=== PATIENT | female | born 1965 | race Caucasian/White ===

== ENCOUNTER 2017-03-03 11:36 | Outpatient (CLI) | payer OTHER | END 2017-03-03 11:37 | disposition home or self-care (01) | LOC: BICRAD 11:36 | DX: M53.3 Sacrococcygeal disorders, not elsewhere classified (principal); W19.XXXA Unspecified fall, initial encounter | CPT/HCPCS: 72220 ==

== ENCOUNTER 2017-05-05 11:49 | Day surgery (SDC) | payer OTHER ==
[2017-05-04 10:59] VITALS: BMI 38.2
[2017-05-05] MEDS ORDERED: Midazolam HCl 2 mg/2 ml Vial ONE ×2 (13:36)
--- NOTE | 2017-05-05 15:35 | RAD ---
CERVICAL SPINE AND LUMBAR SPINE MYELOGRAM: HISTORY: Cervical radiculopathy. Low back pain. Previous lumbar and cervical fusion. COMPARISON: None. EXPOSURE: 1.9 minutes. 74348.1 mGy*^m2. FINDINGS: TWO VIEW ARC WELDER APPRENTICE CERVICAL SPINE RADIOGRAPH: There is cervical fusion at C3 and C4. There is anterior and posterior fusion hardware. Disk prosth esis was identified. Moderate change at C4-C5 and severe degenerative change at C5-C6. TWO VIEW ARC WELDER APPRENTICE LUMBAR SPINE RADIOGRAPH: There is evidence of a dorsal column stimulator at the L2 level. There are bilateral transpedicular screws at L4 and S1. No perihardware lucency. Bone graft material is identified. Disk prosthesis a t L4-L5. Successful lumbar puncture for intrathecal contrast administration. A total of 10 cc of Isovue 300M contrast was administered intrathecally. The patient tolerated the procedure well. No immediate or post procedure complication. TECHNIQUE: Consent was obtained to perform a lumbar puncture for cervical and lumbar myelogram. The patient's b ack was evaluated. The L2-L3 level is deemed appropriate. The skin was prepped and draped in steril e fashion. 1T Lidocaine, buffered with sodium bicarbonate, was used for local anesthesia. Under flu oroscopic guidance, a 22-gauge spinal needle was advanced into the CSF space. A total of 10 cc of Is ovue 300M contrast was administered intrathecally. The patient tolerated the procedure well. No imm ediate or post procedure complications. IMPRESSION: Technically successful lumbar puncture. Please refer to post-myelogram CT for further detail. POS: [facility]
--- NOTE | 2017-05-05 15:46 | CT ---
CT MYELOGRAM CERVICAL SPINE: HISTORY: Cervical radiculopathy. COMPARISON: None. TECHNIQUE: A post-myelogram cervical spine CT is performed in the axial plane. Reformatted images are submitted for interpretation. FINDINGS: There are anterior and posterior fusion changes at C3-C4 with a disk prosthesis at C3-C4 level. No p erihardware lucency. Straightening of normal cervical lordosis is identified. Visualized soft tissue neck structures, upper mediastinum, and lung apices are unremarkable. There i s no prevertebral soft tissue swelling. C2-C3: No significant disk-osteophyte complex. No significant central canal stenosis or foraminal n arrowing. C3-C4: Broad-based osteophyte ridge. No significant central canal stenosis. Minimal right foramina l narrowing due to degenerative change or the uncovertebral joint and facet hypertrophy. The left ne ural foramen is patent. C4-C5: Central disk-osteophyte complex abuts the thecal sac. No high-grade central canal stenosis. Neural foramen are patent bilaterally. C5-C6: Broad-based disk-osteophyte complex abuts the thecal sac. Mild central canal stenosis. Dege nerative of bilateral uncovertebral joints results in mild to moderate right and mild left foraminal narrowing. C6-C7: Central disk-osteophyte complex abuts the thecal sac. Mild central canal stenosis. Neural f oramina are patent bilaterally. C7-T1: No significant disk-osteophyte complex. No significant central canal stenosis. Neural torres en are patent. IMPRESSION: 1. Degenerative changes of the cervical spine as above. 2. Postsurgical change of the cervical spine as above. POS: [facility]
--- NOTE | 2017-05-05 15:48 | CT ---
EXAM: POST MYELOGRAM LUMBAR SPINE CT 05/05/17 HISTORY: Lumbar radiculopathy. Lumbar fusion. COMPARISON: None. TECHNIQUE: Post myelogram lumbar spine CT is performed in the axial plane. Reformatted images are submitted for interpretation. FINDINGS: There is diffuse bone demineralization. There is a dorsal column stimulator that enters the thecal sa c at approximately the T12 level. There are bilateral transpedicular screws a t L4 and L5 without per ihardware lucency. Disc prosthesis at L4-L5. Extensive bone graft material in the posterior elements. Symmetric attenuation of psoas muscles. Visualized solid organs are grossly unremarkable. No retroperitoneal mass, lymphadenopathy, free air of free fluid. The conus medullaris terminates at the inferior aspect of L1. T11-T12 and T12-L1: No high grade central canal stenosis or high grade foraminal narrowing. L1-L2: Small left paracentral disc protrusion. Mild central canal stenosis. Neural foramina are paten t bilaterally. L2-L3: Generalized disc bulge, ligamentum flavum thickening and facet hypertrophy result in mild cent ral canal stenosis. Mild bilateral foraminal narrowing. L3-L4: There are posterior decompressive laminectomy defects. Extensive soft tissue material and bone graft material is identified. There is no significant posterior disc abnormality. However, the afore mentioned changes in the posterior elements result in moderate central canal stenosis. Mild to modera te bilateral foraminal narrowing. L4-L5: Posterior decompressive laminectomy defect. No significant osteophyte ridge. No high grade tomás tral canal stenosis. Neural foramina are patent. L5-S1: No significant central canal stenosis. Neural foramina are mildly narrowed bilaterally. IMPRESSION: 1. Postsurgical changes of lumbar spine as above. 2. Moderate central canal stenosis at L3-L4. POS: [facility]
[2017-05-05] MEDS ORDERED: Iopamidol-M 300 61% 15 ML VIAL ONE (17:25)
== END 2017-05-05 16:35 | disposition home or self-care (01) ==
LOC: SDC/OP 11:49 → EDSTATUS 13:00 → SDC/OP 16:35
PROVIDERS: ATTEND Neurological Surgery
PROC: B02B1ZZ Computerized Tomography (CT Scan) of Spinal Cord using Low Osmolar Contrast (ICD-10-PCS; principal; 2017-05-05)
DX: M50.121 Cervical disc disorder at C4-C5 level with radiculopathy (principal); M48.061 Spinal stenosis, lumbar region without neurogenic claudication; M54.5 Low back pain; Z98.1 Arthrodesis status; Z88.2 Allergy status to sulfonamides; Z88.5 Allergy status to narcotic agent; Z88.8 Allergy status to other drugs, medicaments and biological substances; Z91.041 Radiographic dye allergy status; Z79.899 Other long term (current) drug therapy; Z90.710 Acquired absence of both cervix and uterus; Z98.51 Tubal ligation status; Z98.890 Other specified postprocedural states
CPT/HCPCS: 62305; 72126; 72132; J2250

== ENCOUNTER 2017-07-03 05:42 | Day surgery (SDC) | payer OTHER ==
[2017-06-28 11:26] VITALS: BMI 40.6
--- NOTE | 2017-07-02 23:10 | HP ---
HISTORY OF PRESENT ILLNESS: Ms. Bajwa is a 51-year-old woman who is a former patient of Dr. Negro Joe for many years ago, who has had a few lumbar and cervical fusions as well as a dorsal column stimulator placement. She continues to struggle with severe chronic and debilitating neck an d low back pain as well as headaches, which are managed by Dr. Gomez. She most recently had an upd ated CT myelogram, which reveals foraminal narrowing at C5-C6 bilaterally. She does report increasin g basis of C6 bilateral radiculopathy that likely is matched well by these symptoms. PAST MEDICAL HISTORY: Significant for hypertension, chronic neck and low back pain, and COPD. CURRENT MEDICATIONS: Lisinopril, Zanaflex, trazodone, and Xopenex. ALLERGIES: TRAMADOL, STADOL, MORPHINE, BUTRANS AND FENTANYL PATCHES TRANSDERMAL ONLY, TYLENOL NO: 3, TYLENOL NO: 4, AND SULFA DRUGS. PHYSICAL EXAMINATION: PSYCHIATRIC: The patient is alert and oriented x3. NEUROLOGIC: Gait is severely antalgic, mostly orthopedic in nature secondary to her knee. EXTREMITIES: Lower extremity motor exam is normal. ASSESSMENT: Cervical radiculopathy and low back pain. PLAN: Dr. Reece met with the patient, reviewed imaging, and advocated for C5-C6 ACDF. He explained to the patient the risks, benefits, and alternatives of the procedure. The patient expressed underst anding and would like to move forward with surgery as discussed. I do believe the patient is mentall y competent and capable of making medical decisions for herself and we will move forward with surgery as planned.
[2017-07-03] MEDS ORDERED: CEFAZOLIN/Water 2 GM/20 ML SYRINGE ONE ×2 (06:01→11:05)
[2017-07-03] MEDS ORDERED: Thrombin 5000 UNITS/5 ML VIAL ONE (06:16)
[2017-07-03] MEDS ORDERED: HYDROmorphone 0.5 MG/0.5 ML SYRINGE ONE ×5 (06:37→09:20)
[2017-07-03] MEDS ORDERED: Midazolam HCl 2 mg/2 ml Vial ONE ×2 (06:44→08:44)
--- NOTE | 2017-07-03 08:50 | OP ---
DATE OF PROCEDURE: 07/03/2017 SURGEON: Kem Reece M.D. CIVIL ENGINEERING TEACHER: Chivo Cervantes PA-C. INDICATION: Pain. DIAGNOSIS: Cervical radiculopathy. PROCEDURE: Anterior cervical discectomy and fusion, C5-6. ANESTHESIA: General. TECHNIQUE: The patient was brought into the operating room and placed under general anesthesia. She was placed on the table in a supine position. A transverse incision was planned over the lateral as pect of the neck on the right. After prepping and draping and after an appropriate operative pause, the incision was created. The underlying platysma muscles identified and incised. A blunt tissue pl ane anterior to the sternocleidomastoid muscle was used to gain access to the prevertebral space. Se lf-retaining retractors were placed in the wound for optimal exposure. After confirming the appropri ate level with C-arm fluoroscopy, an annulotomy was performed in the C5-6 disk space. With the use o f distraction pins, the space was distracted, and anterior and posterior osteophytes as well as all d isk material were removed. A 7 mm lordotic PEEK cage packed with allograft and autograft material wa s then placed within the interbody space. An anterior cervical plate was then fashioned in the front of the spine and secured with a total of 4 fixed screws. Midline and lateral structures were inspec jazzy and found to be free from significant trauma. The wound was irrigated. Hemostasis was maintaine d throughout. The wound was then closed in anatomic layers and a pressure dressing was applied. The re were no known procedural complications.
[2017-07-03] MEDS ORDERED: HYDROcodone/Acetaminophen 7.5/325 mg Tablet ONE (10:39)
[2017-07-03] MEDS ORDERED: Dexamethasone 20 MG/5 ML VIAL ONE (16:13)
[2017-07-03] MEDS ORDERED: PROPOFOL 200 MG/20 ML VIAL ONE (16:13)
[2017-07-03] MEDS ORDERED: PHENYLEPHRINE-NS 100 MCG/ML 10 ML SYRINGE ONE (16:13)
[2017-07-03] MEDS ORDERED: Ketorolac Tromethamine 30 MG/ML VIAL ONE (16:13)
[2017-07-03] MEDS ORDERED: Lidocaine 1% PF 5 ML VIAL ONE (16:13)
[2017-07-03] MEDS ORDERED: Glycopyrrolate 0.2 MG/ML 5 ML SYRINGE ONE (16:13)
[2017-07-03] MEDS ORDERED: Ondansetron HCl/PF 4 MG/2 ML Vial ONE (16:13)
--- NOTE | 2017-07-09 08:36 | EKG ---
Test Reason : PREOP Blood Pressure : / mmHG Vent. Rate : 071 BPM Atrial Rate : 071 BPM P-R Int : 156 ms QRS Dur : 084 ms QT Int : 408 ms P-R-T Axes : 065 072 069 degrees QTc Int : 443 ms Normal sinus rhythm Normal ECG When compared with ECG of 21-OCT-2010 07:50, No significant change was found Confirmed by TERRI ESPINO MD ([id number]) on 07/09/2017 8:36:31 AM Referred By: DARELL Confirmed By:TRERI ESPINO MD
== END 2017-07-03 11:45 | disposition home or self-care (01) ==
LOC: SDC 05:42
PROVIDERS: ATTEND Neurological Surgery
PROC: 0RT30ZZ Resection of Cervical Vertebral Disc, Open Approach (ICD-10-PCS; principal; 2017-07-03)
PROC: 0RG10A0 Fusion of Cervical Vertebral Joint with Interbody Fusion Device, Anterior Approach, Anterior Column, Open Approach (ICD-10-PCS; principal; 2017-07-03)
DX: M54.12 Radiculopathy, cervical region (principal); M25.78 Osteophyte, vertebrae; I10 Essential (primary) hypertension; M54.5 Low back pain; G89.29 Other chronic pain; J44.9 Chronic obstructive pulmonary disease, unspecified; Z79.1 Long term (current) use of non-steroidal anti-inflammatories (NSAID); Z79.899 Other long term (current) drug therapy; Z88.6 Allergy status to analgesic agent; Z88.5 Allergy status to narcotic agent; Z88.2 Allergy status to sulfonamides; Z91.041 Radiographic dye allergy status
CPT/HCPCS: 93005; 93010; 96374; C1713; C1776; J1100; J1170; J1885; J2001; J2250; J2405; J2704

== ENCOUNTER 2017-08-15 11:29 | Outpatient (CLI) | payer OTHER ==
--- NOTE | 2017-08-15 13:39 | RAD ---
CERVICAL SPINE 3 VIEWS: Date: 08/15/17 HISTORY: Cervical spine surgery 1 month ago. COMPARISON: 12/13/11. FINDINGS: Two separate areas of anterior diskectomy and fusion are noted, one at C3-4 and one at C5-6. The C5-6 hardware is new. There is also posterior fusion hardware at C3-4, stable. There is no anterolisthesi s or retrolisthesis. No evidence for hardware failure. Incompletely imaged spinal stimulating leads o verlie the mid thoracic spine. At C4-5, there is disc space narrowing and degenerative end plate change. IMPRESSION: Postoperative and degenerative change as above. POS: [facility]
== END 2017-08-15 11:30 | disposition home or self-care (01) ==
LOC: SCSRAD 11:29
PROVIDERS: ATTEND Neurological Surgery
DX: M47.22 Other spondylosis with radiculopathy, cervical region (principal); Z98.890 Other specified postprocedural states
CPT/HCPCS: 72040

== ENCOUNTER 2018-02-13 12:21 | Outpatient (CLI) | payer OTHER ==
--- NOTE | 2018-02-13 14:33 | RAD ---
CHEST TWO VIEWS: Indication: Upper back pain, epigastric pain, dyspnea. Comparison: 05-14-15 FINDINGS: Lungs are clear. Dorsal column stimulator overlies the mid thoracic spine. There is partial visualiza tion of ACDF plates involving the cervical spine. No definite pleural effusion or pneumothorax is jaylen dent. There is mild spondylosis of the thoracic spine. IMPRESSION: No acute cardiopulmonary abnormality. POS: [facility]
== END 2018-02-13 12:22 | disposition home or self-care (01) ==
LOC: SCSRAD 12:21
PROVIDERS: ATTEND Physician Assistant Medical
DX: R10.13 Epigastric pain (principal); R05 Cough; R06.2 Wheezing
CPT/HCPCS: 71046

== ENCOUNTER 2018-08-23 01:36 | Outpatient (CLI) | payer OTHER | END 2018-08-23 01:37 | disposition home or self-care (01) | LOC: LABBT 01:36 | PROVIDERS: ATTEND Orthopaedic Surgery | DX: Z01.818 Encounter for other preprocedural examination (principal); M17.0 Bilateral primary osteoarthritis of knee | CPT/HCPCS: 87081; 93005; 93010 ==

== ENCOUNTER 2018-08-23 15:15 | Inpatient (IN) | payer OTHER ==
[2018-08-23 12:22] VITALS: BMI 41.5
[2018-08-23 15:27] LABS: Hemoglobin 13.5 g/dL (12.0-16.0); Mean Corpuscular HGB CONC 34.3 g/dL (32.0-36.0); Mean Corpuscular Hemoglobin 33.5 pg (27.0-31.0); Mean Corpuscular Volume 97.8 fL (78.0-98.0); Mean Platelet Volume 7.7 fL (7.4-10.4); Platelet Count 287 thou/uL (130-400); Red Blood Cell (RBC) Count 4.03 mill/uL (4.20-5.40); White Blood Cell (WBC) Count 6.7 thou/uL (4.8-10.8)
[2018-08-23 15:31] LABS: Bilirubin Negative (Negative); Blood, Urine Negative (Negative); Clarity CLEAR (Clear); Glucose, Urine (Dipstick) Negative (Negative); Leukocyte Negative (Negative); Nitrite Negative (Negative); Protein, Urine (Dipstick) Negative (Neg-Trace); Specific Gravity, Urine 1.022 (1.002-1.036); Urobilinogen 0.2 mg/dL (0.2-1.0); pH, Urine 5.5 (5.0-9.0)
[2018-08-23 15:35] LABS: Bacteria/HPF None Seen HPF (None Seen); Hyaline Casts/LPF 0-3 HYALINE CAST LPF (0-3 Hyaline); Pathc Cast-AUWi Flag 0.67 (0-2.49); RBC/HPF 0-3 HPF (0-3); Squamous Epithelial 0-3 HPF (0-3); WBC/HPF 0-3 HPF (0-3)
[2018-08-23 15:36] LABS: Prothrombin Time 12.9 SEC (12.0-14.7)
[2018-08-23 15:37] LABS: PTT 28.9 SEC (22.9-36.1)
[2018-08-23 15:52] LABS: Anion Gap 11 mmol/L (10-20); BUN (Urea Nitrogen) 20 mg/dL (9.8-20.1); Calc. Creatinine Clearance 0 mL/min (70-130); Calcium 9.8 mg/dL (7.8-10.44); Carbon Dioxide 28 mmol/L (22-29); Chloride 104 mmol/L (98-107); Estimated GFR-MDRD 69; Glucose 90 mg/dL (70-105); Potassium 4.7 mmol/L (3.5-5.1); Sodium 138 mmol/L (136-145)
[2018-08-27] MEDS ORDERED: Vancomycin HCl 1.5 GM in Sodium Chloride 0.9% 250 ML 300 ML IVPB SCH ×2 (06:15→20:00)
[2018-08-27] MEDS ORDERED: Midazolam HCl 2 mg/2 ml Vial ONE (06:19)
[2018-08-27] MEDS ORDERED: Lidocaine 1% (PF) 30 ML VIAL ONE (06:27)
[2018-08-27] MEDS ORDERED: methylPREDNISolone Acetate 40 mg/ml Vial ONE (06:27)
[2018-08-27] MEDS ORDERED: Sodium Chloride 0.9% 100 ML ONE (06:35)
[2018-08-27] MEDS ORDERED: Tranexamic Acid 1,000 MG/10 ML VIAL ONE ×2 (06:35→09:46)
[2018-08-27] MEDS ORDERED: HYDROcodone/Acetaminophen 10/325 mg Tablet PO PRN ×2 (07:39)
[2018-08-27] MEDS ORDERED: Promethazine HCl 25 MG/ML VIAL IM PRN ×4 (07:39→10:39)
[2018-08-27] MEDS ORDERED: Ropivacaine HCl/PF 250 ML in Premix Bag 1 BAG NERVE BLCK SCH (07:39)
[2018-08-27] MEDS ORDERED: Zolpidem Tartrate 5 MG TAB PO PRN ×3 (07:39→10:39)
[2018-08-27] MEDS ORDERED: Ondansetron PF 4 MG/2 ML Vial IVP PRN ×3 (07:39→10:39)
[2018-08-27] MEDS ORDERED: Bupivacaine PF 0.5% 30 ML VIAL ONE (08:13)
[2018-08-27] MEDS ORDERED: Ondansetron HCl/PF 4 MG/2 ML Vial IVP PRN (09:28)
[2018-08-27] MEDS ORDERED: Promethazine HCl 25 MG/ML VIAL SLOW IVP PRN (09:28)
[2018-08-27] MEDS ORDERED: diphenhydrAMINE 25 MG CAP PO PRN ×2 (09:36→10:39)
[2018-08-27] MEDS ORDERED: Acetaminophen 325 MG TAB PO PRN (09:36)
[2018-08-27] MEDS ORDERED: Non-Formulary Item 1 EACH (Levalbuterol Tartrate [Xopenex Hfa Inhaler] 2 PUFF) PO PRN (09:39)
[2018-08-27] MEDS ORDERED: Ketorolac Tromethamine 30 MG/ML VIAL ONE (09:40)
[2018-08-27] MEDS ORDERED: Ketorolac Tromethamine 30 MG/ML VIAL IVP SCH (09:45)
[2018-08-27] MEDS ORDERED: Tranexamic Acid 1,000 MG in Sodium Chloride 0.9% 100 ML IVPB SCH (09:45)
[2018-08-27] MEDS ORDERED: Acetaminophen 1,000 MG in Premix Bag 1 BAG IVPB SCH (09:45)
[2018-08-27] MEDS ORDERED: HYDROmorphone 2 MG/ML VIAL ONE (09:56)
[2018-08-27] MEDS ORDERED: XOPENEX INH PRN (10:05)
[2018-08-27] MEDS ORDERED: Naloxone HCl 0.4 mg/ml Vial IV PRN (10:39)
[2018-08-27] MEDS ORDERED: diphenhydrAMINE 50 MG/ML VIAL IM/IV PRN (10:39)
[2018-08-27] MEDS ORDERED: HYDROmorphone 10 mg/100 ml CADD IV PRN (10:39)
--- NOTE | 2018-08-27 10:42 | OP ---
DATE OF PROCEDURE: 08/27/2018 PREOPERATIVE DIAGNOSES: Bilateral knee arthritis, left worse than right. POSTOPERATIVE DIAGNOSES: Bilateral knee arthritis, left worse than right. PROCEDURES PERFORMED: 1. Left total knee replacement using Donna pinless navigation. 2. Right knee corticosteroid injection. CHILD WELFARE DIRECTOR: Abdelrahman Mariee PA-C BLOOD LOSS: Minimal. COMPLICATIONS: None. ANESTHESIA: She did have a general anesthetic. She had a preoperative block. DISPOSITION: She went to recovery in stable condition. IMPLANTS: Our implants to the left knee were a Donna triathlon total knee system. We used a size 4 cruciate retaining femur and size 4 primary tibial baseplate. We used a 4 x 11 mm CS X3 tibial bearing and a 27 x 8 symmetric X3 patella. DISPOSITION: She did go to recovery room in stable condition. INDICATIONS: A 52-year-old female, whom I have known for many years, who has had bad knees for at least a decade. At this time, she really just cannot tolerate doing daily activities with our nonoperative means. DESCRIPTION OF PROCEDURE: After verbal consent forms were explained and signed, she was taken to the operative room and at this time was given general anesthetic. Once the level of anesthesia was appropriate, 80 mg of Depo-Medrol local was injected into the right knee after cleaning it off with alcohol. Once the level of anesthesia was appropriate, a well-padded tourniquet was placed on the left leg, and the leg was then prepped and draped in standard surgical fashion. The limb was exsanguinated and tourniquet taken up to 300 mmHg. Midline incision was made with a 10 blade down through the skin and subcutaneous tissue. Bovie electrocautery was used to coagulate any brisk venous bleeding. A new blade was used to make a medial parapatellar arthrotomy. Small subperiosteal release was performed medially and excess fat pad was removed. The knee was flexed up to gain access to the femur. The femur was navigated and distal femoral resection was made. Epicondylar access was used to align our sizing jig and this was pinned in place. We sized our femur to be a 4. 4:1 cutting block was applied and pinned. Anterior and posterior chamfer cuts were then made. We navigated out our proximal tibia and made our proximal tibial resection. Spreaders were used to remove any posterior osteophytes off the back of the femur as well as remaining meniscal tissue. A long alignment gifty was then used to achieve correct rotation of our tibial baseplate and a size 4 was chosen. This was pinned in place. We trialed the polyethylene and a 4 x 11 mm CS X3 polyethylene gave us full extension and good stability throughout range of motion. Two towel clips and a saw were used to cut our patella. Three lug nuts were drilled and 27 x 8 symmetric X3 patella was trialed which sat nicely in the trochlear groove. We then drilled our femur and punched our tibia. All components were removed. The knee was thoroughly irrigated and dried. Cement was mixed into the cement gun on the back table. Components were then placed. The knee was held out in full extension until the cement had dried. All excess bone cement was removed. Multiple #2 Vicryl stitches as well as a Quill were used to close our extensor mechanism. 0 Quill followed by a running Monoderm was then used to close the skin. Surgicel glue was then used on the skin. Once this had dried, soft tissue dressing was applied to the limb, tourniquet was let down, and the toes pinked up nicely. The patient was then awakened and taken to the recovery room in stable condition. All counts were correct at the end of the case. The patient did receive preoperative IV antibiotics. The patient was injected with Exparel for postoperative pain relief. Job ID: [id number]
[2018-08-27] MEDS: Ketorolac Tromethamine 30 MG/ML VIAL IVP SCH ×6 (11:57→23:32)
[2018-08-27] MEDS: CEFAZOLIN 2 GM in Premix Bag 1 BAG IVPB SCH ×2 (14:01→21:00)
[2018-08-27] MEDS: Sodium Chloride 0.9% 1,000 ML IV SCH ×2 (14:03→20:45)
--- NOTE | 2018-08-27 14:20 | PDOC.EVN ---
Event Note - Event Note Event Note: Date/Time: 08/27/18 2564 Thank youfor the consultation request. I personally evaluated the patient and discussed the management with Dr. Moon. I agree with the History, Examination, Assessment and Plan as discussed. Ms. Bajwa is requesting nicotene patch since she cannot smoke at the hospital. This is ordered along with her routine home meds, except for opioids. Currently on a ACCOUNTS PAYABLE LEAD pump for pain.
[2018-08-27] MEDS: Nicotine 21 MG PATCH TD SCH (16:57)
[2018-08-27] MEDS: Aspirin 81 mg Enteric Coated Tablet PO SCH (20:51)
[2018-08-27] MEDS: Ferrous Gluconate 324 MG TAB PO SCH (20:51)
[2018-08-27] MEDS: Senokot S 8.6-50 MG TAB PO SCH (20:53)
[2018-08-27] MEDS: Lisinopril 20 MG TAB PO SCH (20:54)
[2018-08-27] MEDS: tiZANidine HCl 4 MG TAB PO SCH (20:55)
[2018-08-27] MEDS: traZODone HCl 50 MG TAB PO SCH (20:55)
[2018-08-27] MEDS ORDERED: Non-Formulary Item 1 EACH (Tizanidine Hcl [Tizanidine Hcl] 4 MG) PO SCH (21:00)
[2018-08-27] MEDS ORDERED: Non-Formulary Item 1 EACH (Esomeprazole Magnesium [Nexium] 40 MG) PO SCH (21:00)
[2018-08-28 04:12] LABS: Hemoglobin 11.7 g/dL (12.0-16.0); Mean Corpuscular Hemoglobin 33.5 pg (27.0-31.0); Mean Corpuscular Volume 98.6 fL (78.0-98.0); Mean Platelet Volume 7.6 fL (7.4-10.4); Platelet Count 246 thou/uL (130-400); RBC Distribution Width 11.1 % (11.5-14.5); Red Blood Cell (RBC) Count 3.48 mill/uL (4.20-5.40); White Blood Cell (WBC) Count 14.6 thou/uL (4.8-10.8)
[2018-08-28] MEDS: Sodium Chloride 0.9% 1,000 ML IV SCH ×3 (05:00→21:40)
[2018-08-28] MEDS: Ketorolac Tromethamine 30 MG/ML VIAL IVP SCH ×7 (06:37→23:57)
[2018-08-28] MEDS: Multivitamin W/ Minerals 1 TAB PO SCH (08:15)
[2018-08-28] MEDS: Senokot S 8.6-50 MG TAB PO SCH ×2 (08:15→21:34)
[2018-08-28] MEDS: Ferrous Gluconate 324 MG TAB PO SCH ×2 (08:15→21:34)
[2018-08-28] MEDS: Aspirin 81 mg Enteric Coated Tablet PO SCH ×2 (08:16→21:34)
[2018-08-28] MEDS: Nicotine 21 MG PATCH TD SCH (08:16)
--- NOTE | 2018-08-28 08:30 | PDOC.FM ---
- Subjective Subjective: Seen at bedside this morning resting comfortably. States that she got out of bed and worked with PT yesterday and this went well. She does complain about wheezing starting this morning. She denies SOB or cough. - Objective MAR Reviewed: Yes Vital Signs & Weight: Vital Signs (12 hours) Temp Pulse Resp BP BP Pulse Ox 08/28/18 07:27 98.6 F 73 16 119/83 96 08/28/18 04:21 98.1 F 62 15 111/58 L 96 08/28/18 00:08 98.4 F 70 15 107/67 94 L 08/27/18 20:54 122/73 Weight Weight 109.769 kg I&O: 08/27/18 08/28/18 08/29/18 06:59 06:59 06:59 Intake Total 2102 Output Total 2500 Balance -398 Result Diagrams: 08/28/18 03:50 08/23/18 13:21 Phys Exam - Physical Examination Constitutional: NAD HEENT: moist MMs Diffuse wheezing throughout. No increased work of breathing. No distress Cardiovascular: RRR Gastrointestinal: soft, non-tender, no distention Musculoskeletal: no edema L knee with surgical dressing Neurological: moves all 4 limbs Psychiatric: A&O x 3 Skin: no rash Dx/Plan (1) HTN (hypertension) Code(s): I10 - ESSENTIAL (PRIMARY) HYPERTENSION Status: Acute (2) Asthma Code(s): J45.909 - UNSPECIFIED ASTHMA, UNCOMPLICATED Status: Acute (3) GERD (gastroesophageal reflux disease) Code(s): K21.9 - GASTRO-ESOPHAGEAL REFLUX DISEASE WITHOUT ESOPHAGITIS Status: Acute (4) Status post total knee replacement, left Code(s): Z96.652 - PRESENCE OF LEFT ARTIFICIAL KNEE JOINT Status: Acute - Plan Plan: 1. s/p L TKA POD 1 - patient seems to be doing well with PT. Continue standard post op protocol to be managed by ortho - patient had drop in Hb to 11.7, however is hemodynamically stable - Elevated WBC count this morning, however no fever/chills, wound redness or other signs of infection. Likely reactive, continue to monitor for signs of infection. 2. HTN - continue home meds, well controlled here 3. Asthma - patient takes Xopenex at home, will restart here to help with wheezing. O2 sat is WNL on RA and there is little concern for respiratory compromise at this time. 4. GERD - home PPI Dispo: pt doing well overall, will continue to follow. Addendum - Attending - Attending Attestation Date/Time: 08/28/18 8947 I personally evaluated the patient and discussed the management with Dr. Moon. I agree with the History, Examination, Assessment and Plan documented above with any addition or exceptions noted below.
--- NOTE | 2018-08-28 08:42 | CON ---
DATE OF CONSULTATION: 08/27/2018 RESIDENT: Chivo Moon DO HISTORY OF PRESENT ILLNESS: This is a 52-year-old female, who is status post left TKA postop day 0 with a history of hypertension, hyperlipidemia, asthma, GERD, and multiple neck and back surgeries. She is seen today resting comfortably, in no acute distress. 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 She has no specific complaints. PAST MEDICAL HISTORY: Includes hypertension, hyperlipidemia, asthma, questionable diagnosis of COPD, and GERD. PAST SURGICAL HISTORY: 1. Left TKA on 08/27/2018. 2. Multiple prior neck and back surgeries. FAMILY HISTORY: Noncontributory. ALLERGIES: MORPHINE, ALBUTEROL, BUPRENORPHINE, BUTOPHANOL, CODEINE, FENTANYL, IODINE CONTRAST, SULFA, AND TRAMADOL. SOCIAL HISTORY: The patient has a 35 pack-year history of smoking. She has a previous history of heavy alcohol use; however, has stopped drinking greater than five years ago. She has no history of illicit drug use. REVIEW OF SYSTEMS: GENERAL: Denies fever or chills. HEENT: Denies sore throat or headaches. CARDIOVASCULAR: Denies chest pain, palpitations, peripheral edema, or dizziness. RESPIRATORY: Denies shortness of breath or cough. ABDOMEN: Denies abdominal pain, diarrhea, constipation, nausea, or vomiting. NEURO: Notes that she has numbness in her left leg. Otherwise, no specific complaints. Denies numbness or weakness elsewhere. : The patient has Malhotra in place. Denies any lower abdominal pain. PHYSICAL EXAMINATION: VITAL SIGNS: Blood pressure 107/61, temperature 98.0, pulse 81, respiratory rate 20, and O2 saturation 98% on room air. GENERAL: The patient is alert and oriented x4. No apparent distress. HEENT: Normocephalic and atraumatic. CARDIOVASCULAR: Regular rate and rhythm. No murmurs. RESPIRATORY: Clear to auscultation bilaterally. ABDOMEN: Nontender, soft, and nondistended. Bowel sounds normal x4. EXTREMITIES: Upper extremity range of motion and strength normal. Right lower extremity has normal range of motion and strength. Left lower extremity, has a PAC in place. The patient has difficulty moving this in a knee immobilizer. MUSCULOSKELETAL: As improved noted left lower extremity. Otherwise, full range of motion in all extremities and no specific musculoskeletal abnormalities. LABORATORY DATA: Lab results on 08/23, she had a white count of 6.7, hemoglobin 13.5, hematocrit 39.5, and platelets of 287. She had an INR of 1.0. Sodium 138, potassium 4.7, chloride 104, carbon dioxide 28, creatinine 0.87, and glucose 90 ASSESSMENT AND PLAN: 1. Hypertension. 2. Hyperlipidemia. 3. Asthma. 4. Gastroesophageal reflux disease. PLAN: This is a 52-year-old female, who is status post left TKA postop day zero and we will follow her blood pressure and other comorbidities along with you. At this time, blood pressure seems to be well controlled on home medications which have been restarted with the exception of opiates. DVT prophylaxis per local protocol, SCD and aspirin. We will continue to monitor in the morning. Job ID: [id number] [facility]
[2018-08-28] MEDS ORDERED: Nicotine 21 MG PATCH TD SCH (09:00)
[2018-08-28] MEDS: Polyethylene Glycol 3350 17 GM Packet PO SCH (12:41)
[2018-08-28] MEDS: Albuterol Sulfate 1.25 MG/3 ML NEB NEB SCH ×2 (15:58→22:15)
[2018-08-28] MEDS: traZODone HCl 50 MG TAB PO SCH (21:34)
[2018-08-28] MEDS: tiZANidine HCl 4 MG TAB PO SCH (21:34)
[2018-08-28] MEDS: Lisinopril 20 MG TAB PO SCH (21:36)
[2018-08-29 05:33] LABS: Hemoglobin 10.4 g/dL (12.0-16.0); Mean Corpuscular HGB CONC 33.1 g/dL (32.0-36.0); Mean Corpuscular Volume 99.5 fL (78.0-98.0); Mean Platelet Volume 7.8 fL (7.4-10.4); Platelet Count 227 thou/uL (130-400); RBC Distribution Width 11.4 % (11.5-14.5); Red Blood Cell (RBC) Count 3.16 mill/uL (4.20-5.40)
[2018-08-29] MEDS: Ketorolac Tromethamine 30 MG/ML VIAL IVP SCH (06:39)
[2018-08-29] MEDS: Albuterol Sulfate 1.25 MG/3 ML NEB NEB SCH (07:06)
[2018-08-29] MEDS: Nicotine 21 MG PATCH TD SCH (08:37)
[2018-08-29] MEDS: Multivitamin W/ Minerals 1 TAB PO SCH (08:37)
[2018-08-29] MEDS: Ferrous Gluconate 324 MG TAB PO SCH (08:37)
[2018-08-29] MEDS: Senokot S 8.6-50 MG TAB PO SCH (08:37)
[2018-08-29] MEDS: Aspirin 81 mg Enteric Coated Tablet PO SCH (08:37)
[2018-08-29] MEDS: Polyethylene Glycol 3350 17 GM Packet PO SCH (08:37)
[2018-08-29] MEDS: Sodium Chloride 0.9% 1,000 ML IV SCH (08:40)
--- NOTE | 2018-08-29 09:00 | PDOC.FM ---
- Subjective Subjective: Seen at bedside this morning in no acute distress. Patient is participating with PT and feeling well. There were no acute events over night, no concerns from patient or nursing. - Objective MAR Reviewed: Yes Vital Signs & Weight: Vital Signs (12 hours) Temp Pulse Resp BP BP BP Pulse Ox 08/29/18 07:47 98.2 F 64 18 141/97 H 99 08/29/18 07:06 76 15 08/29/18 04:00 98 F 81 18 145/96 H 98 08/28/18 23:39 98.4 F 79 16 110/68 95 08/28/18 22:15 73 20 97 08/28/18 21:36 130/77 Weight Admit Weight 109.769 kg Weight 109.769 kg I&O: 08/28/18 08/29/18 08/30/18 06:59 06:59 06:59 Intake Total 2102 2102 Output Total 2500 250 Balance -398 1852 Result Diagrams: 08/29/18 04:29 08/23/18 13:21 Phys Exam - Physical Examination Constitutional: NAD HEENT: moist MMs Neck: no JVD Respiratory: clear to auscultation bilateral Cardiovascular: RRR, no significant murmur Gastrointestinal: soft, non-tender Musculoskeletal: no edema Surgical dressing on L knee Neurological: normal sensation, moves all 4 limbs Psychiatric: normal affect, A&O x 3 Dx/Plan (1) HTN (hypertension) Code(s): I10 - ESSENTIAL (PRIMARY) HYPERTENSION Status: Acute (2) Asthma Code(s): J45.909 - UNSPECIFIED ASTHMA, UNCOMPLICATED Status: Acute (3) GERD (gastroesophageal reflux disease) Code(s): K21.9 - GASTRO-ESOPHAGEAL REFLUX DISEASE WITHOUT ESOPHAGITIS Status: Acute (4) Status post total knee replacement, left Code(s): Z96.652 - PRESENCE OF LEFT ARTIFICIAL KNEE JOINT Status: Acute - Plan Plan: 1. s/p L TKA POD 2 - doing well with PT, per ortho note, expect dc today or in am - patient had drop in Hb to 10.4, however is hemodynamically stable and asymptomatic - Elevated WBC count resolved. 2. HTN - continue home meds, well controlled here 3. Asthma - Xopenex as needed. Normal O2 sat on RA. No complaint of SOB. 4. GERD - home PPI Dispo: pt doing well overall, will continue to follow. Addendum - Attending - Attending Attestation Date/Time: 08/29/18 4995 I personally evaluated the patient and discussed the management with Dr. Moon. I agree with the History, Examination, Assessment and Plan documented above with any addition or exceptions noted below.
[2018-08-29 11:29] VITALS: BP 157/84; TEMP 100.1
[2018-08-29] MEDS ORDERED: Enoxaparin Sodium 40 MG/0.4 ML SYRINGE SC SCH (13:30)
[2018-08-29] MEDS ORDERED: Ibuprofen 800 MG TAB PO SCH (14:00)
[2018-08-30] MEDS ORDERED: Aspirin 81 mg Enteric Coated Tablet PO SCH (09:00)
== END 2018-08-29 14:59 | disposition home or self-care (01) | DRG 470 ==
LOC: SURG A 08-27 05:43 → SJJU 08-27 11:54
PROVIDERS: ADMIT Orthopaedic Surgery; ATTEND Orthopaedic Surgery
PROC: 0SRD0J9 Replacement of Left Knee Joint with Synthetic Substitute, Cemented, Open Approach (ICD-10-PCS; principal; 2018-08-27)
DX: M17.12 Unilateral primary osteoarthritis, left knee (principal); I10 Essential (primary) hypertension; E78.5 Hyperlipidemia, unspecified; J45.909 Unspecified asthma, uncomplicated; K21.9 Gastro-esophageal reflux disease without esophagitis; Z88.5 Allergy status to narcotic agent; Z88.2 Allergy status to sulfonamides; Z88.8 Allergy status to other drugs, medicaments and biological substances; Z91.041 Radiographic dye allergy status; Z79.899 Other long term (current) drug therapy
CPT/HCPCS: 36415; 80048; 81001; 85027; 85610; 85730; 86850; 86900; 86901; 94640; C1713; C1776; J0131; J0690; J1030; J1170; J1650; J1885; J2001; J2250; J2795; J3370; J3490; J7050; S0020

== ENCOUNTER 2019-01-18 12:03 | Outpatient (CLI) | payer OTHER ==
--- NOTE | 2019-01-18 13:08 | ULT ---
RIGHT UPPER QUADRANT ULTRASOUND CLINICAL HISTORY: Chronic abdominal pain. COMPARISON: None FINDINGS: Liver:Normal echotexture without focal mass. Intrahepatic bile ducts: No intrahepatic or extrahepatic biliary dilation.; Common bile duct: 4.2mm. Gallbladder: Normal appearing. Rao's sign:None Main portal vein:Patent with hepatopedal flow. Pancreas:Visualized pancreas appears normal. Right kidney: Right kidney measures 10.2 x 4.7 x 4.7 cm. No focal renal lesion or hydronephrosis. Additional findings: None. IMPRESSION: Normal RUQ ultrasound.
--- NOTE | 2019-01-18 13:36 | ULT ---
THYROID ULTRASOUND: COMPARISON: 02/09/2016. HISTORY: Thyroid nodule. FINDINGS: Right thyroid lobe measures 2.6 x 5.2 x 1.9 cm. Left thyroid lobe measures 1.7 x 5.1 x 1.4 cm. Thyroid isthmus measures 0.3 cm. Simple and septated cystic lesions are noted in the right thyroid lobe. The largest lesion is in the lower pole and measures 0.6 x 0.9 x 1.3 cm. 0.7 cm solid nodules in the mid and upper pole the left thyroid lobe. IMPRESSION: 1. Solitary thyroid nodules in the mid thyroid lobe. 2. TIRADS calculator score of TR3, mildly suspicious. Followup imaging is recommended. Transcribed Date/Time: 01/18/2019 1:44 PM
== END 2019-01-18 12:04 | disposition home or self-care (01) ==
LOC: BICULT 12:03
PROVIDERS: ATTEND Specialist
DX: E04.2 Nontoxic multinodular goiter (principal); R10.9 Unspecified abdominal pain; G89.29 Other chronic pain
CPT/HCPCS: 76536; 76705

== ENCOUNTER 2019-04-25 10:06 | Outpatient (CLI) | payer OTHER ==
--- NOTE | 2019-05-02 13:25 | MMO ---
Bilateral MAMMO Bilat Screen [facility]DI. CLINICAL HISTORY: Patient is 53 years old and is seen for screening. The patient has the following family history of breast cancer: maternal aunt, at age 37. The patient has a history of ovarian cancer at age 26. VIEWS: The views performed were: bilateral craniocaudal and bilateral mediolateral oblique. FILMS COMPARED: The present examination has been compared to prior imaging studies performed at [facility] on 06/06/2008 and 01/01/2015. This study has been interpreted with the assistance of computer-aided detection. MAMMOGRAM FINDINGS: There are scattered fibroglandular densities. There are no suspicious masses, suspicious calcifications, or new areas of architectural distortion. IMPRESSION: THERE IS NO MAMMOGRAPHIC EVIDENCE OF MALIGNANCY. A ROUTINE FOLLOW-UP MAMMOGRAM IN 1 YEAR IS RECOMMENDED. ACR BI-RADS Category 1 - Negative MAMMOGRAPHY NOTE: 1. A negative mammogram report should not delay a biopsy if a dominant of clinically suspicious mass is present. 2. Approximately 10% to 15% of breast cancers are not detected by mammography. 3. Adenosis and dense breasts may obscure an underlying neoplasm. Reported by: ABHILASH RAMIREZ MD Electonically Signed: [id number]
== END 2019-04-25 10:07 | disposition home or self-care (01) ==
LOC: BICMAMMO 10:06
PROVIDERS: ATTEND Family Medicine
DX: Z12.31 Encounter for screening mammogram for malignant neoplasm of breast (principal); Z85.43 Personal history of malignant neoplasm of ovary; Z80.3 Family history of malignant neoplasm of breast
CPT/HCPCS: 77067

== ENCOUNTER 2020-11-04 14:24 | Outpatient (CLI) | payer OTHER | END 2020-11-04 14:25 | disposition home or self-care (01) | LOC: LABBT 14:24 | PROVIDERS: ATTEND Orthopaedic Surgery | DX: Z01.818 Encounter for other preprocedural examination (principal); M17.11 Unilateral primary osteoarthritis, right knee; Z20.822 Contact with and (suspected) exposure to COVID-19 | CPT/HCPCS: 71046; 80048; 81001; 85025; 85610; 86850; 86900; 86901; 87081; 93005; 93010; U0003; U0005 ==

== ENCOUNTER 2020-11-09 09:12 | Inpatient (IN) | payer OTHER ==
[2020-11-04 15:31] LABS: #Basophils 0.1 10x3/uL (0.0-0.2); #Eosinphils 0.2 10x3/uL (0.0-0.5); #Monocytes 0.4 10x3/uL (0.0-1.1); #Neutrophils 3.3 10x3/uL (1.5-8.4); %Basophils 1.2 % (0.0-2.0); %Eosinophils 2.6 % (0.0-6.0); %Lymphocytes 40.6 % (18.0-47.0); %Monocytes 6.3 % (0.0-10.0); %Neutrophils 49.2 % (40.0-75.0); Hemoglobin 12.2 g/dL (12.0-15.5); Mean Corpuscular HGB CONC 32.8 g/dL (32.0-36.0); Mean Corpuscular Hemoglobin 33.2 pg (27.0-33.0); Mean Corpuscular Volume 101.4 fl (81.6-98.3); Mean Platelet Volume 9.8 fl (7.4-10.4); Platelet Count 274 10x3/uL (150-450); RBC Distribution Width 11.5 % (11.5-14.5); Red Blood Cell (RBC) Count 3.67 10x6/uL (3.90-5.03); White Blood Cell (WBC) Count 6.8 10x3/uL (3.5-10.5)
[2020-11-04 15:38] LABS: Bilirubin 1+ (Negative); Blood, Urine Negative (Negative); Clarity Slightly Cloudy (Clear); Glucose, Urine (Dipstick) Normal (Negative); Ketone, Urine 5 mg/dL (Negative); Leukocyte 25 (Negative); Nitrite Negative (Negative); Protein, Urine (Dipstick) 30 mg/dl (Neg-Trace)
[2020-11-04 15:55] LABS: Anion Gap 12 mmol/L (10-20); BUN (Urea Nitrogen) 31 mg/dL (9.8-20.1); Calc. Creatinine Clearance 0 mL/min (70-130); Calcium 10.1 mg/dL (7.8-10.44); Carbon Dioxide 29 mmol/L (22-29); Chloride 106 mmol/L (98-107); Glucose 86 mg/dL (70-105); Potassium 4.8 mmol/L (3.5-5.1); Sodium 142 mmol/L (136-145)
[2020-11-04 15:56] LABS: INR-International Normal Ratio 0.9; Prothrombin Time 10.4 sec (9.5-12.1)
[2020-11-04 16:36] LABS: Bacteria/HPF Rare-Few HPF (None Seen); Mucous/LPF 2+ LPF (<2+); RBC/HPF 0-3 HPF (0-3)
[2020-11-05 08:02] LABS: SARS-CoV-2 PCR by NAA Not Detected (NotDetected)
[2020-11-09] MEDS ORDERED: Tranexamic Acid 1,000 MG/10 ML VIAL ONE ×2 (09:49→14:41)
[2020-11-09] MEDS ORDERED: Sodium Chloride 0.9% 100 ML ONE (09:49)
[2020-11-09] MEDS ORDERED: Vancomycin HCl 1.5 GM in Sodium Chloride 0.9% 250 ML 300 ML IVPB SCH ×2 (10:00→22:30)
[2020-11-09] MEDS ORDERED: Midazolam HCl 2 mg/2 ml Vial ONE ×2 (10:16→11:04)
[2020-11-09] MEDS ORDERED: Fentanyl 100 MCG/2 ML VIAL ONE ×6 (10:16→15:08)
[2020-11-09] MEDS ORDERED: Bupivacaine PF 0.5% 30 ML VIAL ONE (11:56)
[2020-11-09] MEDS ORDERED: Dexamethasone 4 mg/ml Vial ONE (12:16)
[2020-11-09] MEDS ORDERED: ePHEDrine 50 MG/ML VIAL ONE (12:21)
[2020-11-09] MEDS ORDERED: Lidocaine 1% PF 5 ML VIAL ONE (12:21)
[2020-11-09] MEDS ORDERED: Bupivacaine HCl 0.5%/Epinephrine 1:200,000/PF 30 ml Vial ONE (12:21)
[2020-11-09] MEDS ORDERED: Ropivacaine 2% HCl/PF (20 MG/10 ML VIAL) ONE (12:21)
[2020-11-09] MEDS ORDERED: PROPOFOL 200 MG/20 ML VIAL ONE (12:21)
[2020-11-09] MEDS ORDERED: Ketorolac Tromethamine 30 MG/ML VIAL ONE (12:21)
[2020-11-09] MEDS ORDERED: Ondansetron PF 4 MG/2 ML Vial ONE (12:21)
[2020-11-09] MEDS ORDERED: Dexamethasone 20 MG/5 ML VIAL ONE (12:21)
[2020-11-09] MEDS ORDERED: HYDROcodone/Acetaminophen 10/325 mg Tablet PO PRN ×5 (12:26→13:30)
[2020-11-09] MEDS ORDERED: Zolpidem Tartrate 5 MG TAB PO PRN ×2 (12:26→13:15)
[2020-11-09] MEDS ORDERED: diphenhydrAMINE 25 MG CAP PO PRN (12:26)
[2020-11-09] MEDS ORDERED: Ondansetron PF 4 MG/2 ML Vial IVP PRN ×2 (12:26→13:15)
[2020-11-09] MEDS ORDERED: Acetaminophen 325 MG TAB PO PRN (12:26)
[2020-11-09] MEDS ORDERED: Promethazine HCl 25 MG/ML VIAL IM PRN ×3 (12:26→14:24)
[2020-11-09] MEDS ORDERED: Tranexamic Acid 1,000 MG in Sodium Chloride 0.9% 100 ML IVPB SCH (12:30)
[2020-11-09] MEDS ORDERED: Fentanyl 100 MCG/2 ML VIAL IV PRN (13:14)
[2020-11-09] MEDS ORDERED: Ondansetron HCl/PF 4 MG/2 ML Vial IVP PRN (14:24)
[2020-11-09] MEDS ORDERED: Promethazine HCl 25 MG/ML VIAL IVPB PRN (14:24)
[2020-11-09] MEDS ORDERED: Promethazine HCl 25 MG/ML VIAL ONE (15:13)
[2020-11-09] MEDS ORDERED: HYDROmorphone 2 MG/ML VIAL ONE ×2 (15:14→17:51)
[2020-11-09] MEDS ORDERED: diphenhydrAMINE 50 MG/ML VIAL ONE (19:03)
[2020-11-09] MEDS ORDERED: oxyCODONE 5 MG TAB PO SCH (21:00)
[2020-11-09] MEDS ORDERED: tiZANidine HCl 4 MG TAB ONE (21:43)
[2020-11-09] MEDS ORDERED: HYDROcodone/Acetaminophen 10/325 mg Tablet ONE (21:44)
[2020-11-09] MEDS: tiZANidine HCl 4 MG TAB PO SCH (21:49)
[2020-11-09] MEDS: CEFAZOLIN 2 GM in Premix Bag 1 BAG IVPB SCH (22:30)
[2020-11-09] MEDS: Aspirin 81 mg Enteric Coated Tablet PO SCH (23:22)
[2020-11-09] MEDS: Lisinopril 20 MG TAB PO SCH (23:28)
[2020-11-09] MEDS: traZODone HCl 50 MG TAB PO SCH (23:30)
[2020-11-09] MEDS: Sodium Chloride 0.9% 1,000 ML IV SCH (23:41)
[2020-11-10] MEDS ORDERED: HYDROcodone/Acetaminophen 10/325 mg Tablet ONE ×2 (03:11→07:10)
[2020-11-10] MEDS: HYDROcodone/Acetaminophen 10/325 mg Tablet PO PRN ×2 (03:13→07:20)
[2020-11-10 04:16] LABS: Hemoglobin 9.7 g/dL (12.0-16.0); Mean Corpuscular HGB CONC 34.4 g/dL (32.0-36.0); Mean Platelet Volume 7.2 fL (7.4-10.4); Platelet Count 239 thou/uL (130-400); RBC Distribution Width 10.9 % (11.5-14.5); Red Blood Cell (RBC) Count 2.77 mill/uL (4.20-5.40); White Blood Cell (WBC) Count 10.8 thou/uL (4.8-10.8)
[2020-11-10] MEDS ORDERED: Levalbuterol HCl 1.25 MG/0.5 ML NEB NEB PRN (04:46)
[2020-11-10] MEDS: CEFAZOLIN 2 GM in Premix Bag 1 BAG IVPB SCH (06:08)
[2020-11-10] MEDS: Sodium Chloride 0.9% 1,000 ML IV SCH ×4 (07:32→19:22)
[2020-11-10] MEDS: tiZANidine HCl 4 MG TAB PO PRN ×2 (08:29→13:56)
[2020-11-10] MEDS ORDERED: Ondansetron PF 4 MG/2 ML Vial IVP PRN (08:30)
[2020-11-10] MEDS ORDERED: Levalbuterol HCl 0.63 MG/3 ML NEB NEB SCH (08:30)
[2020-11-10] MEDS ORDERED: Naloxone HCl 0.4 mg/ml Vial IV PRN (08:30)
[2020-11-10] MEDS ORDERED: diphenhydrAMINE 25 MG CAP PO PRN (08:30)
[2020-11-10] MEDS ORDERED: diphenhydrAMINE 50 MG/ML VIAL IM/IV PRN (08:30)
[2020-11-10] MEDS ORDERED: Zolpidem Tartrate 5 MG TAB PO PRN (08:30)
[2020-11-10] MEDS ORDERED: Promethazine HCl 25 MG/ML VIAL IM PRN (08:30)
[2020-11-10] MEDS: CeleCOXIB 100 MG CAP PO SCH (08:31)
[2020-11-10] MEDS: Ferrous Gluconate 324 MG TAB PO SCH ×2 (08:31→20:38)
[2020-11-10] MEDS: Aspirin 81 mg Enteric Coated Tablet PO SCH ×2 (08:31→20:38)
[2020-11-10] MEDS: Senokot S 8.6-50 MG TAB PO SCH ×2 (08:32→20:39)
[2020-11-10] MEDS: Multivitamin W/ Minerals 1 TAB PO SCH (08:32)
[2020-11-10] MEDS: HYDROmorphone 10 MG in Sodium Chloride 0.9% 95 ML IVPB PRN (09:12)
[2020-11-10] MEDS: Ropivacaine HCl/PF 250 ML in Premix Bag 1 BAG NERVE BLCK SCH (16:22)
[2020-11-10] MEDS: Lisinopril 20 MG TAB PO SCH (20:38)
[2020-11-10] MEDS: tiZANidine HCl 4 MG TAB PO SCH (20:39)
[2020-11-10] MEDS: traZODone HCl 50 MG TAB PO SCH (22:09)
[2020-11-11] MEDS: HYDROmorphone 10 MG in Sodium Chloride 0.9% 95 ML IVPB PRN (02:06)
[2020-11-11 06:07] LABS: Hemoglobin 8.4 g/dL (12.0-16.0); Mean Corpuscular HGB CONC 33.9 g/dL (32.0-36.0); Mean Platelet Volume 7.7 fL (7.4-10.4); Platelet Count 222 thou/uL (130-400); RBC Distribution Width 10.9 % (11.5-14.5); Red Blood Cell (RBC) Count 2.41 mill/uL (4.20-5.40); White Blood Cell (WBC) Count 10.2 thou/uL (4.8-10.8)
[2020-11-11] MEDS: Ferrous Gluconate 324 MG TAB PO SCH ×2 (10:40→20:50)
[2020-11-11] MEDS: CeleCOXIB 100 MG CAP PO SCH (10:41)
[2020-11-11] MEDS: Multivitamin W/ Minerals 1 TAB PO SCH (10:42)
[2020-11-11] MEDS: Aspirin 81 mg Enteric Coated Tablet PO SCH ×2 (10:42→20:49)
[2020-11-11] MEDS: Senokot S 8.6-50 MG TAB PO SCH ×2 (10:46→20:51)
[2020-11-11] MEDS ORDERED: HYDROcodone/Acetaminophen 10/325 mg Tablet PO PRN (12:40)
[2020-11-11 14:12] VITALS: BMI 39.8
[2020-11-11] MEDS: HYDROcodone/Acetaminophen 10/325 mg Tablet PO PRN ×2 (14:19→20:47)
[2020-11-11] MEDS: Sodium Chloride 0.9% 1,000 ML IV SCH (15:12)
[2020-11-11] MEDS: Ropivacaine HCl/PF 250 ML in Premix Bag 1 BAG NERVE BLCK SCH (17:17)
[2020-11-11] MEDS: oxyCODONE ER 20 MG TAB PO SCH (19:30)
[2020-11-11] MEDS: tiZANidine HCl 4 MG TAB PO SCH (20:49)
[2020-11-11] MEDS: Lisinopril 20 MG TAB PO SCH (20:50)
[2020-11-11] MEDS: traZODone HCl 50 MG TAB PO SCH (22:01)
[2020-11-12] MEDS: Sodium Chloride 0.9% 1,000 ML IV SCH (00:08)
[2020-11-12] MEDS: HYDROcodone/Acetaminophen 10/325 mg Tablet PO PRN (04:06)
[2020-11-12 06:44] LABS: Hemoglobin 8.7 g/dL (12.0-16.0); Mean Corpuscular HGB CONC 33.4 g/dL (32.0-36.0); Mean Corpuscular Hemoglobin 34.2 pg (27.0-31.0); Mean Platelet Volume 7.6 fL (7.4-10.4); Platelet Count 222 thou/uL (130-400); RBC Distribution Width 10.9 % (11.5-14.5); Red Blood Cell (RBC) Count 2.53 mill/uL (4.20-5.40); White Blood Cell (WBC) Count 8.2 thou/uL (4.8-10.8)
[2020-11-12 08:19] VITALS: BP 115/67; TEMP 98.8
[2020-11-12] MEDS: CeleCOXIB 100 MG CAP PO SCH (08:45)
[2020-11-12] MEDS: Aspirin 81 mg Enteric Coated Tablet PO SCH (08:45)
[2020-11-12] MEDS: Ferrous Gluconate 324 MG TAB PO SCH (08:46)
[2020-11-12] MEDS: Multivitamin W/ Minerals 1 TAB PO SCH (08:46)
[2020-11-12] MEDS: Senokot S 8.6-50 MG TAB PO SCH (08:46)
[2020-11-12] MEDS: oxyCODONE ER 20 MG TAB PO SCH (08:46)
== END 2020-11-12 10:18 | disposition home or self-care (01) | DRG 470 ==
LOC: SDC 09:12 → EDSTATUS 14:45 → PACU-TCU 11-10 00:25 → SURG A 11-10 13:43
PROVIDERS: ADMIT Orthopaedic Surgery; ATTEND Orthopaedic Surgery
PROC: 0SRC0J9 Replacement of Right Knee Joint with Synthetic Substitute, Cemented, Open Approach (ICD-10-PCS; principal; 2020-11-09)
DX: M17.11 Unilateral primary osteoarthritis, right knee (principal); Z96.652 Presence of left artificial knee joint; Z20.822 Contact with and (suspected) exposure to COVID-19; Z90.710 Acquired absence of both cervix and uterus; Z98.1 Arthrodesis status
CPT/HCPCS: 36415; 80048; 81001; 85025; 85027; 85610; 86850; 86900; 86901; 87081; 94640; C1713; C1776; J0690; J1100; J1170; J1200; J1885; J2250; J2405; J2550; J2704; J2795; J3010; J3370; J3490; J7050; J7614; J7620; S0020; U0003; U0005

== ENCOUNTER 2021-01-26 12:14 | Outpatient (CLI) | payer OTHER | END 2021-01-26 12:15 | disposition home or self-care (01) | LOC: BICULT 12:14 | PROVIDERS: ATTEND Family Medicine | DX: R10.9 Unspecified abdominal pain (principal); K76.0 Fatty (change of) liver, not elsewhere classified | CPT/HCPCS: 76700 ==

== ENCOUNTER 2021-05-14 11:25 | Outpatient (CLI) | payer OTHER | END 2021-05-14 11:26 | disposition home or self-care (01) | LOC: BICRAD 11:25 | PROVIDERS: ATTEND Internal Medicine Gastroenterology | DX: K76.0 Fatty (change of) liver, not elsewhere classified (principal); E66.9 Obesity, unspecified; M54.9 Dorsalgia, unspecified; R10.12 Left upper quadrant pain; G89.29 Other chronic pain | CPT/HCPCS: 71046 ==

== ENCOUNTER 2021-06-22 07:14 | Day surgery (SDC) | payer OTHER ==
[2021-06-21 15:01] VITALS: BMI 39.8
[2021-06-22 08:15] VITALS: BP 123/82; TEMP 98.1
== END 2021-06-22 09:00 | disposition home or self-care (01) ==
LOC: RAD 07:14
PROVIDERS: ATTEND Specialist
DX: M48.062 Spinal stenosis, lumbar region with neurogenic claudication (principal); M96.1 Postlaminectomy syndrome, not elsewhere classified; M51.16 Intervertebral disc disorders with radiculopathy, lumbar region; M47.26 Other spondylosis with radiculopathy, lumbar region; M48.05 Spinal stenosis, thoracolumbar region; M47.817 Spondylosis without myelopathy or radiculopathy, lumbosacral region; M48.07 Spinal stenosis, lumbosacral region; M43.12 Spondylolisthesis, cervical region; M25.78 Osteophyte, vertebrae; M48.02 Spinal stenosis, cervical region; M47.813 Spondylosis without myelopathy or radiculopathy, cervicothoracic region; I10 Essential (primary) hypertension; Z87.891 Personal history of nicotine dependence; Z79.1 Long term (current) use of non-steroidal anti-inflammatories (NSAID); Z79.52 Long term (current) use of systemic steroids; Z79.899 Other long term (current) drug therapy; Z88.2 Allergy status to sulfonamides; Z88.5 Allergy status to narcotic agent; Z88.8 Allergy status to other drugs, medicaments and biological substances; Z91.018 Allergy to other foods; Z91.041 Radiographic dye allergy status; Z96.82 Presence of neurostimulator; Z98.1 Arthrodesis status
CPT/HCPCS: 72125; 72131

== ENCOUNTER 2022-05-19 09:35 | Outpatient (CLI) | payer OTHER | END 2022-05-19 09:36 | disposition home or self-care (01) | LOC: BICMAMMO 09:35 | PROVIDERS: ATTEND Family Medicine | DX: N63.23 Unspecified lump in the left breast, lower outer quadrant (principal); N60.02 Solitary cyst of left breast | CPT/HCPCS: 77066; G0279 ==

== ENCOUNTER 2023-01-17 09:10 | Outpatient (CLI) | payer OTHER | END 2023-01-17 09:11 | disposition home or self-care (01) | LOC: BICMAMMO 09:10 | PROVIDERS: ATTEND Family Medicine | DX: N63.14 Unspecified lump in the right breast, lower inner quadrant (principal) | CPT/HCPCS: G0279 ==

== ENCOUNTER 2023-02-01 13:02 | Emergency (ER) | payer OTHER ==
[2023-02-01 13:22] LABS: #Basophils 0.1 thou/uL (0.0-0.2); #Eosinphils 0.1 thou/uL (0.0-0.7); #Monocytes 0.4 thou/uL (0.11-0.59); #Neutrophils 5.4 thou/uL (1.40-6.50); %Basophils 0.6 % (0.0-1.0); %Eosinophils 0.6 % (0.0-10.0); %Lymphocytes 29.3 % (21.0-51.0); %Monocytes 5.2 % (0.0-10.0); %Neutrophils 64.2 % (42.0-75.0); Hemoglobin 11.8 g/dL (12.0-16.0); Mean Corpuscular HGB CONC 33.7 g/dL (32.0-36.0); Mean Corpuscular Hemoglobin 33.5 pg (27.0-31.0); Mean Corpuscular Volume 99.4 fl (78.0-98.0); Mean Platelet Volume 8.9 fL (7.4-10.4); Platelet Count 300 10x3/uL (130-400); RBC Distribution Width 12.7 % (11.5-14.5); Red Blood Cell (RBC) Count 3.52 mill/uL (4.20-5.40); White Blood Cell (WBC) Count 8.4 10x3/uL (4.8-10.8)
[2023-02-01] MEDS ORDERED: NOREPINEPHRINE 8 MG/250 ML-D5W 250 ML ONE (13:41)
[2023-02-01 13:50] LABS: ALT (SGPT) 16 U/L (8-55); AST (SGOT) 9 U/L (5-34); Acetaminophen Less than 10 mcg/mL (10.0-30.0); Albumin 3.7 g/dL (3.5-5.0); Alcohol Less than 10.0 mg/dL (Less than 10); Alkaline Phosphatase 77 U/L (40-110); Anion Gap 10 mmol/L (10-20); BUN (Urea Nitrogen) 18 mg/dL (9.8-20.1); Bilirubin, Total 0.5 mg/dL (0.2-1.2); Calc. Creatinine Clearance 0 mL/min (70-130); Calcium 8.8 mg/dL (7.8-10.44); Carbon Dioxide 29 mmol/L (22-29); Chloride 104 mmol/L (98-107); Estimated GFR 57; Globulin 2.1 g/dL (2.4-3.5); Glucose 116 mg/dL (70-105); Protein, Total 5.8 g/dL (6.0-8.3); Salicylate Less than 8.0 mg/dL (15.0-30.0); Sodium 139 mmol/L (136-145)
[2023-02-01] MEDS ORDERED: Morphine 4 MG/ML VIAL ONE (15:45)
[2023-02-01] MEDS ORDERED: Ketorolac Tromethamine 30 MG/ML VIAL ONE (15:45)
== END 2023-02-01 16:22 | disposition home or self-care (01) ==
LOC: ERS 13:02
DX: R53.1 Weakness (principal); I95.9 Hypotension, unspecified; I10 Essential (primary) hypertension; E78.5 Hyperlipidemia, unspecified; J45.909 Unspecified asthma, uncomplicated; F17.210 Nicotine dependence, cigarettes, uncomplicated; Z79.899 Other long term (current) drug therapy; Z79.82 Long term (current) use of aspirin
CPT/HCPCS: 70450; 72131; 80053; 80307; 85025; 93005; 96374; 96375; J1885; J2270

== ENCOUNTER 2023-08-30 09:48 | Day surgery (SDC) | payer OTHER ==
[2023-08-25 14:33] VITALS: BMI 39.8
[2023-08-30] MEDS ORDERED: EPINEPHrine 1 MG/ML VIAL ONE (10:45)
[2023-08-30] MEDS ORDERED: Bupivacaine 0.25% HCL 30 ML VIAL ONE (10:46)
[2023-08-30] MEDS ORDERED: CEFAZOLIN 2 GM VIAL ONE (11:00)
[2023-08-30] MEDS ORDERED: Sodium Chloride 0.9% 100 ML ONE (11:00)
[2023-08-30] MEDS ORDERED: Midazolam HCl 2 mg/2 ml Vial ONE (11:02)
[2023-08-30] MEDS ORDERED: Ropivacaine 0.5% HCl/PF (150 MG/30 ML VIAL) ONE (11:02)
[2023-08-30] MEDS ORDERED: Lidocaine 1% PF 5 ML VIAL ONE (11:05)
[2023-08-30] MEDS ORDERED: methylPREDNISolone Acetate 40 mg/ml Vial ONE (11:05)
[2023-08-30] MEDS ORDERED: fentaNYL PF 100 MCG/2 ML SYRINGE ONE (11:49)
[2023-08-30] MEDS ORDERED: PROPOFOL 20 ML ONE (11:49)
[2023-08-30] MEDS ORDERED: Rocuronium Bromide 10 MG/ML (10ML VIAL) ONE (12:20)
[2023-08-30] MEDS ORDERED: Ondansetron PF 4 MG/2 ML Vial ONE (12:42)
[2023-08-30] MEDS ORDERED: Vecuronium 10 MG VIAL ONE (12:42)
[2023-08-30] MEDS ORDERED: Dexamethasone 20 MG/5 ML VIAL ONE (12:42)
[2023-08-30] MEDS ORDERED: SUGAMMADEX SODIUM 200 MG/2 ML VIAL ONE ×2 (13:27)
[2023-08-30] MEDS ORDERED: Glycopyrrolate 0.2 MG/ML 5 ML SYRINGE ONE (13:27)
[2023-08-30] MEDS ORDERED: HYDROmorphone 2 MG/ML VIAL ONE (14:08)
[2023-08-30] MEDS ORDERED: Promethazine HCl 25 MG/ML VIAL IM PRN (15:00)
[2023-08-30] MEDS ORDERED: Zolpidem Tartrate 5 MG TAB PO PRN (15:00)
[2023-08-30] MEDS ORDERED: Ondansetron PF 4 MG/2 ML Vial IVP PRN (15:00)
[2023-08-30] MEDS ORDERED: Ropivacaine 0.2% 550 ML 550 ML NERVE BLCK SCH (15:00)
== END 2023-08-30 17:00 | disposition home or self-care (01) ==
LOC: SDC 09:48
PROVIDERS: ATTEND Orthopaedic Surgery
PROC: 0LS44ZZ Reposition Left Upper Arm Tendon, Percutaneous Endoscopic Approach (ICD-10-PCS; principal; 2023-08-30)
PROC: 0R9T3ZZ Drainage of Left Carpometacarpal Joint, Percutaneous Approach (ICD-10-PCS; principal; 2023-08-30)
DX: M75.102 Unspecified rotator cuff tear or rupture of left shoulder, not specified as traumatic (principal); M18.12 Unilateral primary osteoarthritis of first carpometacarpal joint, left hand; M94.212 Chondromalacia, left shoulder; S46.212A Strain of muscle, fascia and tendon of other parts of biceps, left arm, initial encounter; J45.909 Unspecified asthma, uncomplicated; I10 Essential (primary) hypertension; G43.909 Migraine, unspecified, not intractable, without status migrainosus; Z90.710 Acquired absence of both cervix and uterus; Z98.51 Tubal ligation status; Z98.890 Other specified postprocedural states; Z96.653 Presence of artificial knee joint, bilateral; Z87.891 Personal history of nicotine dependence; Z79.899 Other long term (current) drug therapy; Z91.041 Radiographic dye allergy status; Z88.5 Allergy status to narcotic agent; Z88.8 Allergy status to other drugs, medicaments and biological substances; Z88.2 Allergy status to sulfonamides; X58.XXXA Exposure to other specified factors, initial encounter
CPT/HCPCS: A4306; C1713; J0171; J0665; J1030; J1100; J1170; J2250; J2405; J2704; J2795; J3490

== ENCOUNTER 2023-12-15 10:10 | Outpatient (CLI) | payer OTHER ==
[2023-12-15 11:25] LABS: #Basophils 0.05 10x3/uL (0.0-0.2); %Basophils 0.8 % (0.0-1.0); %Eosinophils 1.8 % (0.0-10.0); %Lymphocytes 40.3 % (21.0-51.0); %Monocytes 6.4 % (0.0-10.0); %Neutrophils 50.5 % (42.0-75.0); Hematocrit 39.4 % (36.0-47.0); Hemoglobin 13.3 g/dL (12.0-16.0); Mean Corpuscular HGB CONC 33.8 g/dL (32.0-36.0); Mean Corpuscular Hemoglobin 32.8 pg (27.0-31.0); Mean Platelet Volume 9.3 fL (7.4-10.4); Platelet Count 286 10x3/uL (130-400); Red Blood Cell (RBC) Count 4.06 mill/uL (4.20-5.40)
== END 2023-12-15 10:11 | disposition home or self-care (01) ==
LOC: LABBT 10:10
PROVIDERS: ATTEND Orthopaedic Surgery Hand Surgery
DX: Z01.818 Encounter for other preprocedural examination (principal); M18.12 Unilateral primary osteoarthritis of first carpometacarpal joint, left hand; M65.4 Radial styloid tenosynovitis [de Quervain]
CPT/HCPCS: 85025; 93005; 93010

== ENCOUNTER 2023-12-22 09:34 | Day surgery (SDC) | payer OTHER ==
[2023-12-15 10:40] VITALS: BMI 39.8
[2023-12-22] MEDS ORDERED: fentaNYL 50 mcg/mL 1 mL Vial ONE (12:52)
[2023-12-22] MEDS ORDERED: Ropivacaine 0.5% HCl/PF (150 MG/30 ML VIAL) ONE (12:53)
[2023-12-22] MEDS ORDERED: Midazolam HCl 2 mg/2 ml Vial ONE (12:53)
== END 2023-12-22 17:05 | disposition home or self-care (01) ==
LOC: SDC 09:34
PROVIDERS: ATTEND Orthopaedic Surgery Hand Surgery
DX: M18.12 Unilateral primary osteoarthritis of first carpometacarpal joint, left hand (principal); M65.4 Radial styloid tenosynovitis [de Quervain]; M18.11 Unilateral primary osteoarthritis of first carpometacarpal joint, right hand; Z53.9 Procedure and treatment not carried out, unspecified reason; J45.909 Unspecified asthma, uncomplicated; I10 Essential (primary) hypertension; G43.909 Migraine, unspecified, not intractable, without status migrainosus; Z79.899 Other long term (current) drug therapy; Z87.891 Personal history of nicotine dependence
CPT/HCPCS: J2250; J2795; J3010

== ENCOUNTER 2023-12-26 05:42 | Day surgery (SDC) | payer OTHER ==
[2023-12-25 10:10] VITALS: BMI 39.8
[2023-12-26] MEDS ORDERED: PROPOFOL 20 ML ONE (06:45)
[2023-12-26] MEDS ORDERED: Lidocaine 1% PF 5 ML VIAL ONE (06:45)
[2023-12-26] MEDS ORDERED: Dexamethasone 20 MG/5 ML VIAL ONE (06:52)
[2023-12-26] MEDS ORDERED: Ondansetron PF 4 MG/2 ML Vial ONE (06:52)
[2023-12-26] MEDS ORDERED: Bupivacaine HCl 0.5%/Epinephrine 1:200,000/PF 30 ml Vial ONE (06:58)
[2023-12-26] MEDS ORDERED: Sodium Chloride 0.9% 100 ML ONE (07:00)
[2023-12-26] MEDS ORDERED: CEFAZOLIN 2 GM VIAL ONE (07:00)
[2023-12-26] MEDS ORDERED: fentaNYL 50 mcg/mL 1 mL Vial ONE (07:08)
[2023-12-26] MEDS ORDERED: Bupivacaine PF 0.5% 30 ML VIAL ONE (07:08)
[2023-12-26] MEDS ORDERED: Midazolam HCl 2 mg/2 ml Vial ONE (07:08)
[2023-12-26] MEDS ORDERED: Lidocaine 1% (PF) 30 ML VIAL ONE (07:08)
[2023-12-26] MEDS ORDERED: Ketamine In 0.9 % NaCl 50 MG/5 ML SYRINGE ONE (07:43)
[2023-12-26] MEDS ORDERED: PHENYLEPHRINE-NS 100 MCG/ML 10 ML SYRINGE ONE (07:48)
[2023-12-26] MEDS ORDERED: ePHEDrine Sulfate 50 MG/10 ML VIAL ONE (07:56)
[2023-12-26] MEDS ORDERED: Bacitracin Zinc Ointment 30 gm TUBE ONE (09:05)
[2023-12-26] MEDS ORDERED: Ketorolac Tromethamine 30 MG (1 mL) VIAL ONE (11:21)
[2023-12-26] MEDS ORDERED: HYDROcodone/Acetaminophen 5/325 mg Tablet ONE (11:41)
== END 2023-12-26 12:13 | disposition home or self-care (01) ==
LOC: SDC 05:42
PROVIDERS: ATTEND Orthopaedic Surgery Hand Surgery
PROC: 0PTN0ZZ Resection of Left Carpal, Open Approach (ICD-10-PCS; principal; 2023-12-26)
PROC: 0RRP0JZ Replacement of Left Wrist Joint with Synthetic Substitute, Open Approach (ICD-10-PCS; principal; 2023-12-26)
DX: M65.4 Radial styloid tenosynovitis [de Quervain] (principal); M18.12 Unilateral primary osteoarthritis of first carpometacarpal joint, left hand; Z87.891 Personal history of nicotine dependence; J45.909 Unspecified asthma, uncomplicated; I10 Essential (primary) hypertension; G43.909 Migraine, unspecified, not intractable, without status migrainosus; Z98.51 Tubal ligation status; Z98.890 Other specified postprocedural states; Z88.5 Allergy status to narcotic agent; Z79.899 Other long term (current) drug therapy; Z88.2 Allergy status to sulfonamides; Z88.8 Allergy status to other drugs, medicaments and biological substances
CPT/HCPCS: C1713; J0665; J1100; J1885; J2250; J2405; J2704; J3010; J3490